=== PATIENT | male | born 1995 | race Caucasian/White ===

== ENCOUNTER 2018-05-05 18:36 | Emergency (ER) | payer OTHER ==
--- NOTE | 2018-05-05 18:57 | ED ---
Lower Extremity - HPI Summary HPI Summary: This patient is a 22 year old M presenting to [facility] with a chief complaint of right ankle pain since 12:00. The patient reports the symptoms began after he rolled his ankle on the curb of the sidewalk. The patient rates the pain 4/10 in severity. Symptoms aggravated by standing or bearing weight. Symptoms alleviated by nothing. The patient reports he is unable to bear any weight on the leg. Patient reports drinking EtOH earlier today. - History of Current Complaint Chief Complaint: EDExtremityLower Stated Complaint: RT FOOT INJURY PER PT Time Seen by Provider: 05/05/18 18:47 Hx Obtained From: Patient Mechanism Of Injury: Direct Blow, Twisted Onset of Pain: Hours, Post Accident, Prior to Arrival Onset/Duration: Still Present Severity Initially: Mild Severity Currently: Mild Pain Intensity: 4 Pain Scale Used: 0-10 Numeric Timing: Constant Location: Is Discrete @ - right ankle Associated Signs And Symptoms: Positive: Other - right ankle pain. Negative: Bruising Aggravating Factor(s): Standing, Weight Bearing Alleviating Factor(s): Nothing Able to Bear Weight: No - Allergies/Home Medications Allergies/Adverse Reactions: Allergies Allergy/AdvReac Type Severity Reaction Status Date / Time shellfish derived Allergy Edema Verified 05/05/18 18:45 PMH/Surg Hx/FS Hx/Imm Hx Endocrine/Hematology History: Denies: Hx Diabetes Opthamlomology History: Denies: Hx Legally Blind EENT History: Denies: Hx Deafness - Surgical History Surgery Procedure, Year, and Place: none Infectious Disease History: No Infectious Disease History: Denies: Traveled Outside the [place] in Last 30 Days - Family History Known Family History: Negative: Diabetes - Social History Occupation: Student Alcohol Use: Occasionally Review of Systems Negative: Epistaxis Negative: Cough Negative: Vomiting Positive: Arthralgia - right ankle pain Negative: Rash All Other Systems Reviewed And Are Negative: Yes Physical Exam - Summary Physical Exam Summary: VITAL SIGNS: Reviewed. GENERAL: Patient is a well-developed and nourished MALE who is lying comfortable in the stretcher. Patient is not in any acute respiratory distress. HEAD AND FACE: No signs of trauma. No ecchymosis, hematomas or skull depressions. No sinus tenderness. EYES: PERRLA, EOMI x 2, No injected conjunctiva, no nystagmus. EARS: Hearing grossly intact. Ear canals and tympanic membranes are within normal limits. MOUTH: Oropharynx within normal limits. NECK: Supple, trachea is midline, no adenopathy, no JVD, no carotid bruit, no c- spine tenderness, neck with full ROM. CHEST: Symmetric, no tenderness at palpation LUNGS: Clear to auscultation bilaterally. No wheezing or crackles. CVS: Regular rate and rhythm, S1 and S2 present, no murmurs or gallops appreciated. ABDOMEN: Soft, non-tender. No signs of distention. No rebound no guarding, and no masses palpated. Bowel sounds are normal. EXTREMITIES: no edema, no cyanosis or clubbing. Decreased ROM in right ankle secondary to pain. Nml pulses and good capillary refill. No bruising or hematoma. NEURO: Alert and oriented x 3. No acute neurological deficits. Speech is normal and follows commands. SKIN: Dry and warm Triage Information Reviewed: Yes Vital Signs On Initial Exam: Initial Vitals Temp Pulse Resp BP Pulse Ox 99.6 F 74 18 139/60 97 05/05/18 18:43 05/05/18 18:43 05/05/18 18:43 05/05/18 18:43 05/05/18 18:43 Vital Signs Reviewed: Yes Diagnostics - Vital Signs Vital Signs Temp Pulse Resp BP Pulse Ox 05/05/18 18:43 99.6 F 74 18 139/60 97 - Laboratory Lab Statement: Any lab studies that have been ordered have been reviewed, and results considered in the medical decision making process. - Radiology Right Ankle XR Radiology Interpretation Completed By: ED Physician - Dr. Hernandes, pending official report Summary of Radiographic Findings: No fracture or dislocation - CT CT RLE CT Interpretation Completed By: Radiologist Summary of CT Findings: IMPRESSION: Soft tissue swelling without fracture or subluxation. Ankle mortise joint is symmetric. Dr. Hernandes has reviewed this report. Lower Extremity Course/Dx - Course Assessment/Plan: Patient is a 22-year-old male who presents to the emergency room with a chief complaining of right ankle pain. The patient reports that he is unable to ambulate. X-ray of the right ankle negative for acute fracture dislocation. Because the patient reports that the pain is worse so he was given Toradol and [place] for the pain. I decided to do a CT of the right ankle and foot and the impression is soft tissue swelling without any fracture or subluxation. Ankle mortise joint is symmetric. At this point the patient was placed in a gel cast and given crutches. The patient will be discharged home with follow-up with primary care physician and he will be given a prescription for ibuprofen. Patient is hemodynamically stable alert oriented 3. - Diagnoses Provider Diagnoses: Ankle sprain Discharge - Sign-Out/Discharge Documenting (check all that apply): Patient Departure - discharge home Patient Received Moderate/Deep Sedation with Procedure: No - Discharge Plan Condition: Stable Disposition: HOME Prescriptions: Ibuprofen TAB* [Motrin TAB* 800 MG] 800 mg PO Q8H #20 tab Patient Education Materials: Ankle Sprain (ED) Referrals: [facility] [Outside] - 2 Days Additional Instructions: Follow up with your primary care physician in 2-3 days. Return to the emergency department with any new or worsening symptoms. - Attestation Statements Document Initiated by Scribe: Yes Documenting Scribe: Estefania Cardona Provider For Whom Damiane is Documenting (Include Credential): Alin Hernandes MD Scribe Attestation: Estefania Quintero, scribed for Alin Hernandes MD on 05/05/18 at 2020. Status of Scribe Document: Ready
[2018-05-05] MEDS ORDERED: Ketorolac INJ* 60 MG/2 ML VIAL IM ONE (19:02)
[2018-05-05] MEDS ORDERED: HYDROcodone/ACETAMIN 5-325 MG* 1 TAB PO ONE (19:02)
[2018-05-05 20:43] VITALS: BP 125/63
== END 2018-05-05 20:43 | disposition home or self-care (01) ==
LOC: ED 18:36
DX: S93.401A Sprain of unspecified ligament of right ankle, initial encounter (principal); X50.1XXA Overexertion from prolonged static or awkward postures, initial encounter; Y92.480 Sidewalk as the place of occurrence of the external cause; Z91.013 Allergy to seafood
CPT/HCPCS: 96372; 99282; J1885

== ENCOUNTER 2018-11-13 13:47 | Emergency (ER) | payer OTHER ==
[2018-11-13] MEDS ORDERED: Lidocaine 1% INJ* 10 MG/ML 30 ML SDV INJ ONE (15:59)
[2018-11-13 16:32] VITALS: BP 107/55
--- NOTE | 2018-11-14 05:07 | ED ---
Skin Complaint - HPI Summary HPI Summary: This patient is a 23-year-old male who presents to the ED with left foot complaint. He believes there is foreign body in the foot. He states symptoms have been present times one month. He is endorsing a small 0.5 cm rounded area surrounded by callus. He states it is somewhat painful, however continues to ambulate well. He does not recall stepping on a foreign body and has never had this before. Symptoms are worse with ambulation, better with rest. - History of Current Complaint Chief Complaint: EDExtremityLower Time Seen by Provider: 11/13/18 14:33 Stated Complaint: GLASS IN LEFT FOOT PER PT Hx Obtained From: Patient Onset/Duration: Started Weeks Ago Timing: Constant Onset Severity: Mild Current Severity: Mild Pain Intensity: 0 Pain Scale Used: 0-10 Numeric Skin Location: Discrete - left lateral plantar surface of foot Aggravating Symptom(s): Nothing Alleviating Symptom(s): Nothing Associated Signs & Symptoms: Negative - Allergy/Home Medications Allergies/Adverse Reactions: Allergies Allergy/AdvReac Type Severity Reaction Status Date / Time shellfish derived Allergy Edema Verified 05/05/18 18:45 PMH/Surg Hx/FS Hx/Imm Hx Previously Healthy: Yes Endocrine/Hematology History: Denies: Hx Diabetes Sensory History: Denies: Hx Legally Blind, Hx Deafness Opthamlomology History: Denies: Hx Legally Blind - Surgical History Surgery Procedure, Year, and Place: none - Immunization History Hx Pertussis Vaccination: No Immunizations Up to Date: Yes Infectious Disease History: No Infectious Disease History: Denies: Traveled Outside the [place] in Last 30 Days - Family History Known Family History: Negative: Diabetes - Social History Occupation: Unemployed Lives: With Family Alcohol Use: Occasionally Hx Substance Use: Yes Substance Use Type: Reports: Marijuana Hx Tobacco Use: No Smoking Status (MU): Current Some Day Smoker Review of Systems Negative: Fever, Chills, Fatigue, Skin Diaphoresis Negative: Chest Pain Negative: Shortness Of Breath, Cough Positive: see HPI Negative: Arthralgia, Myalgia Positive: Other - small .5cm circular area on plantar surface of the lateral L foot Neurological: Negative All Other Systems Reviewed And Are Negative: Yes Physical Exam Triage Information Reviewed: Yes Vital Signs On Initial Exam: Initial Vitals Temp Pulse Resp BP Pulse Ox 98.7 F 61 15 131/73 100 11/13/18 14:03 11/13/18 14:03 11/13/18 14:03 11/13/18 14:03 11/13/18 14:03 Vital Signs Reviewed: Yes Appearance: Positive: Well-Appearing, Well-Nourished Skin: Positive: Skin Color Reflects Adequate Perfusion, Other - small .5cm circular area on plantar surface of the lateral L foot without erythema, callus formation surrounding resembling a corn Head/Face: Positive: Normal Head/Face Inspection Eyes: Positive: EOMI, MIRANDA, Conjunctiva Clear Neck: Positive: Supple Respiratory/Lung Sounds: Positive: Clear to Auscultation Cardiovascular: Positive: Normal Musculoskeletal: Positive: Normal Psychiatric: Positive: Affect/Mood Appropriate Diagnostics - Vital Signs Vital Signs Temp Pulse Resp BP Pulse Ox 11/13/18 16:31 98.5 F 66 16 107/55 98 11/13/18 14:03 98.7 F 61 15 131/73 100 - Laboratory Lab Statement: Any lab studies that have been ordered have been reviewed, and results considered in the medical decision making process. Course/Dx - Course Course Of Treatment: This patient is evaluated for a possible foreign body into the left foot. He states he does not recall stepping on a foreign body in the past, however symptoms have been present times one month. Xray obtained which shows no evidence of FB. On physical examination, there is a 0.5 cm circular area to the lateral portion of the plantar surface of the foot without erythema. There is surrounding callus. This appears to be a deep plantar callus/corn with associated debris. Pt requesting attempt to dislodge. Cleansed thoroughly. 2ml lidocaine without epi used as local, dislodged debris to reveal deep pore in foot measuring .3cm in depth. Continues to remain ambulatory. Pt will use a plantar file to decrease the size of callus for improvement. - Diagnoses Provider Diagnoses: [place] of foot, Foot callus Discharge ED - Sign-Out/Discharge Documenting (check all that apply): Patient Departure Patient Received Moderate/Deep Sedation with Procedure: No - Discharge Plan Condition: Stable Disposition: HOME Referrals: [facility] [Primary Care Provider] - Additional Instructions: For the callous/corn - use a file/buffer on the foot to file down some of the excess skin A foot rasp/callous remover will be best for this - Billing Disposition and Condition Condition: STABLE Disposition: Home - Attestation Statements Provider Attestation: I was available for consult. This patient was seen by the JESENIA. The patient was not presented to, seen by, or examined by me. Mendez Jarvis MD
== END 2018-11-13 16:31 | disposition home or self-care (01) ==
LOC: ED 13:47
DX: L84 Corns and callosities (principal); F17.200 Nicotine dependence, unspecified, uncomplicated
CPT/HCPCS: 99282